=== PATIENT | female | born 1985 | race Caucasian/White ===

== ENCOUNTER 2017-04-26 15:26 | Emergency (ER) | payer OTHER ==
--- NOTE | ~2017-04-26 | CR72 ---
[facility] A Service of [facility] & [facility] RADIOLOGY TEXT RESULTS PATIENT: LENA SUMMERS LOCATION: SED : [birth year] UNIT #: [id number] AGE: [address]: Haydee Andrade SEX: F ORDER DR: [id number] [address] [address] [id number] MR#: [id number] Acc #: [id number] NAME: LEAN SUMMERS : 1985 SEX: F STUDY DATE/TIME: 04/26/2017 15:54 UNIT: SED ROOM: STUDY DESCRIPTION: CR Chest Single View Portable Attending Physician: Haydee Andrade Pa-C Ordering Physician: Haydee Andrade Pa-C Primary Care Physician: No Primary Care Physician MEDICAL IMAGING REPORT This report is preliminary unless electronic signature is present. EXAM Portable chest, 04/26/2017 HISTORY A 31-year-old female with cough and left-sided chest pain beginning this morning. COMPARISON STUDIES None. FINDINGS Frontal chest demonstrates clear lungs. No pleural effusion or pneumothorax. Heart size and mediastinum normal. Pulmonary vasculature normal. IMPRESSION No acute cardiopulmonary findings. Dictated by... Ming Mccracken M.D. THIS IS AN ELECTRONICALLY VERIFIED REPORT Ming Mccracken M.D. at 04/27/2017 3:26 PM VEDA/serge TD: 04/26/2017 21:49 JOB #: [id number] MEDICAL IMAGING REPORT Page 1 of 1
== END 2017-04-26 17:06 | disposition home or self-care (01) ==
LOC: SED 15:26
DX: J40 Bronchitis, not specified as acute or chronic (principal)
CPT/HCPCS: 71010; 99283

== ENCOUNTER 2017-06-11 18:59 | Emergency (ER) | payer OTHER ==
[~2017-06-11] VITALS: Ht 162.6 cm; Wt 75.7 kg
== END 2017-06-11 19:46 | disposition home or self-care (01) ==
LOC: SED 18:59
DX: K04.7 Periapical abscess without sinus (principal)
CPT/HCPCS: 99282